=== PATIENT | male | born 1960 | race Caucasian/White ===

== ENCOUNTER → 2018-06-05 | Outpatient (CLI) | payer BC ==
[2018-06-05 08:58] LABS: HCT 53.3 % (39.0-53.0); HGB 18.1 gm/dL (13.0-17.5); MCH 28.8 pg (25.0-35.0); MCV 84.7 fL (80.0-100.0); Mean Platelet Volume 7.1; Platelet Count 242 k/uL (150-450); RDW 14.8 % (11.5-15.5); WBC 6.5 k/uL (3.8-10.6)
[2018-06-05 17:01] LABS: ALT 63 U/L (10-49); AST 41 U/L (14-35); Albumin/Globulin Ratio 1.83 (1.60-3.17); Alkaline Phosphatase 58 U/L (41-126); Calcium 9.8 mg/dL (8.7-10.3); Carbon Dioxide 29.8 mmol/L (21.6-31.8); Chloride 103 mmol/L (96-109); Cholesterol 169 mg/dL (0-200); Globulin 2.4 g/dL (1.6-3.3); Glucose 191 mg/dL (70-110); Potassium 4.2 mmol/L (3.5-5.5); Sodium 140 mmol/L (135-145); Total Bilirubin 0.6 mg/dL (0.2-1.2); Total Protein 6.8 g/dL (6.2-8.2)
[2018-06-05 18:40] LABS: Hemoglobin A1C 7.6 % (4.0-6.0)
== END ==
LOC: LABWHC1 08:37
PROVIDERS: ATTEND Internal Medicine
DX: E78.00 Pure hypercholesterolemia, unspecified (principal); E29.1 Testicular hypofunction
CPT/HCPCS: 36415; 80053; 80061; 83036; 83721; 84403; 84443; 85027

== ENCOUNTER → 2018-10-01 | Outpatient (CLI) | payer BC ==
--- NOTE | 2018-10-02 12:13 | CT ---
EXAMINATION TYPE: CT brain [facility] DATE OF EXAM: 10/01/2018 COMPARISON: None HISTORY: migraines CT DLP: 1720.7 mGycm, Automated exposure control for dose reduction was used. CONTRAST: Patient injected with 0 mL of Isovue 300. CT of the brain is performed utilizing 3 mm thick sections through the posterior fossa and 3 mm thick sections through the remaining calvarium. Study is performed within 24 hours of arrival to the hospital. No abnormal hyperdensity is present to suggest an acute intracranial hemorrhage. No mass lesion is evident. No acute infarcts are evident. Ventricles and sulci are appropriate for the patient age. Paranasal sinuses and mastoid air cells within the [id number] are clear. IMPRESSIONS: 1. Normal CT brain. CT cervical spine. COMPARISON: None CT of the cervical spine is performed in the axial plane at 2 mm thick sections. Reconstructed image s in the coronal, and sagittal plane are reviewed on the computer. No acute fractures are evident. Vertebral body alignment is normal. Disc heights are preserved. Vertebral body heights are preserved. No spinal canal stenosis is evident. No neural foraminal stenosis is evident. IMPRESSIONS: 1. Normal CT cervical spine.
--- NOTE | 2018-10-02 12:15 | CT ---
EXAMINATION TYPE: CT lumbar spine wo con DATE OF EXAM: 10/01/2018 COMPARISON: HISTORY: back pain, no injury CT DLP: 1598.2 mGycm CONTRAST: CT scan of the lumbar is performed , patient injected with mL of . TECHNIQUE: CT of the lumbar spine is performed on a spiral scan at 3 mm thick sections. Reconstructed images are performed in the coronal and sagittal planes. FINDINGS: T12-L1: No focal disc herniation or significant disc bulge is evident. No spinal canal stenosis or neural foraminal stenosis is present. L1-L2: No focal disc herniation or significant disc bulge is evident. No spinal canal stenosis or n eural foraminal stenosis is present L2-L3: No focal disc herniation or significant disc bulge is evident. No spinal canal stenosis or n eural foraminal stenosis is present L3-L4: Mild disc bulge is present with anterior thecal sac contact. No AP spinal canal stenosis prese nt. Neural foramen are patent. L4-L5: Broad-based disc bulge has mild to moderate anterior thecal sac compression. Congenitally shor t pedicles are present. Mild facet hypertrophy is present. Spinal canal stenosis is not present. L5-S1: No focal disc herniation or significant disc bulge is evident. No spinal canal stenosis or n eural foraminal stenosis is present Vertebral alignment appears normal. IMPRESSION: Disc bulging L3-4 and L4-5 slightly greater at L4-5 without spinal canal stenosis.
--- NOTE | 2018-10-02 12:29 | CT ---
EXAMINATION TYPE: CT angio head neck DATE OF EXAM: 10/01/2018 HISTORY: migraines COMPARISON: None CT DLP: 391.8 mGycm. Automated Exposure Control for Dose Reduction was Utilized. TECHNIQUE: CTA scan of the neck is performed with IV Contrast, patient injected with 50cc mL of Isov ue 370, axial images are obtained, coronal and sagittal reformatted images are reviewed. Three-D elina nstructed images are created on an independent workstation and reviewed. Source images are reviewed. FINDINGS: Carotid/Vascular Structures: There is a three-vessel arch. Internal carotid artery origins appear nor mal without significant flow-limiting stenosis. Cervical of [place]: Vertebral basilar system appears normal. Vertebral arteries are codominant. Poste rior cerebral vasculature is unremarkable. Internal carotid arteries bifurcate normally into A1 and M 1 segments. The right A1 segment is somewhat hypoplastic. A2 segments are normal. The anterior commun icating artery is patent. Left Posterior communicating artery is patent. Right posterior communicatin g artery is patent. Other: Portion of the soft tissues the neck and brain is visualized to this exam appear normal. IMPRESSION: 1. No flow-limiting stenosis bilateral carotid bifurcations. 2. Normal [place]
== END | disposition home or self-care (01) ==
LOC: RADCTMAIN 15:20
PROVIDERS: ATTEND Psychiatry & Neurology Neurology
DX: R42 Dizziness and giddiness (principal); M51.26 Other intervertebral disc displacement, lumbar region; M54.2 Cervicalgia; M79.604 Pain in right leg; M79.621 Pain in right upper arm; G43.909 Migraine, unspecified, not intractable, without status migrainosus; Z88.8 Allergy status to other drugs, medicaments and biological substances
CPT/HCPCS: 82565; 84520; 72125; 72131; 70496; 70450; 70498; 36415; Q9967

== ENCOUNTER → 2023-08-04 | Outpatient (CLI) | payer BC ==
--- NOTE | 2023-08-04 09:54 | CT ---
EXAMINATION TYPE: CT thoracic spine wo con DATE OF EXAM: 08/04/2023 COMPARISON: None HISTORY: 62-year-old male M47.814, back pain TECHNIQUE: Contiguous axial scanning of the thoracic spine without IV contrast. Coronal and sagittal reconstructions performed. CT DLP: 1704.5 mGycm Automated exposure control for dose reduction was used. FINDINGS: Vertebral body heights are preserved and alignment is maintained. [facility] within the mid to lower thoracic spine extending from T4 down through the T9 levels. Mild to moderate degenerative disc disease mid to lower thoracic spine. Disc osteophyte complex formation particularly at T7-T8 and T8-T9. This continues to mild narrowing o f the spinal canal at both levels. Scattered mild facet degenerative change throughout. No significant bony neuroforaminal narrowing seen. IMPRESSION: 1. 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 2. POSTERIOR DISC OSTEOPHYTE COMPLEXES AT T7-T8 AND T8-T9 CONTRIBUTE TO MILD SPINAL CANAL STENOSES AT BOTH OF THESE LEVELS. 3. NO VERTEBRAL COMPRESSION COLLAPSE OR MALALIGNMENT.
== END | disposition home or self-care (01) ==
LOC: RADCTMAIN 06:50
PROVIDERS: ATTEND Psychiatry & Neurology Neurology
DX: M51.34 Other intervertebral disc degeneration, thoracic region (principal); M47.814 Spondylosis without myelopathy or radiculopathy, thoracic region; M25.78 Osteophyte, vertebrae
CPT/HCPCS: 72128